=== PATIENT | female | born 1995 | race Hispanic/Latino ===

== ENCOUNTER 2021-12-26 10:52 | Emergency (ER) | payer SELFPAY ==
[~2021-12-26] VITALS: Ht 160 cm; Wt 103.0 kg
[2021-12-26] MEDS ORDERED: FAMOTIDINE 20 MG/2 ML VIAL IV STA (11:49)
[2021-12-26] MEDS ORDERED: KETOROLAC TROMETHAMINE 30 MG/ML VIAL IV STA (11:49)
[2021-12-26] MEDS ORDERED: SODIUM CHLORIDE 0.9% 1000ML 1,000 ML IV SCH (12:00)
[2021-12-26] MEDS ORDERED: IOPAMIDOL 370 MG/ML 100 ML INFUS..BTL INJ ONE (12:11)
[2021-12-26] MEDS ORDERED: SODIUM CHLORIDE 0.9% 1000ML 1,000 ML ONE (12:18)
[2021-12-26] MEDS ORDERED: KETOROLAC TROMETHAMINE 30 MG/ML VIAL ONE (12:18)
[2021-12-26] MEDS ORDERED: FAMOTIDINE 20 MG/2 ML VIAL IV ONE (12:18)
[2021-12-26] MEDS ORDERED: ONDANSETRON HCL INJ 2MG/ML 2ML 2 MG/ML VIAL ONE (12:18)
[2021-12-26] MEDS ORDERED: ONDANSETRON HCL INJ 2MG/ML 2ML 2 MG/ML VIAL IV STA (12:20)
[2021-12-26] MEDS ORDERED: CIPRO500 MG PO (13:32)
[2021-12-26] MEDS ORDERED: ONDANSETRON ODT4 MG PO (13:33)
[2021-12-26] MEDS ORDERED: METRONIDAZOLE500 MG PO (13:33)
[2021-12-26] MEDS ORDERED: DICYCLOMINE HCL20 MG PO (13:34)
[2021-12-26] MEDS ORDERED: ANALPRAM HC 2.530 GM PR (13:36)
== END 2021-12-26 13:50 | disposition home or self-care (01) ==
LOC: FSED 11:21
DX: K92.1 Melena (principal); K52.9 Noninfective gastroenteritis and colitis, unspecified; R10.13 Epigastric pain; K60.2 Anal fissure, unspecified; R11.0 Nausea
CPT/HCPCS: 74177; 80048; 80076; 81003; 81025; 85025; 99284; J1885; J2405; J7030; Q9967